=== PATIENT | female | born 1965 | race African-American/Black ===

== ENCOUNTER 2021-02-08 06:12 | Emergency (ER) | payer SELFPAY ==
[~2021-02-08] VITALS: Ht 170.2 cm; Wt 70.0 kg
[2021-02-08] MEDS ORDERED: IBUPROFEN 400MG TABLET PO ONE (07:00)
[2021-02-08] MEDS ORDERED: ACETAMINOPHEN 325MG TABLET PO ONE (07:00)
[2021-02-08 07:04] VITALS: BP 144/62
== END 2021-02-08 07:56 | disposition home or self-care (01) ==
LOC: ER 06:12
DX: Z00.00 Encounter for general adult medical examination without abnormal findings (principal); Z85.89 Personal history of malignant neoplasm of other organs and systems
CPT/HCPCS: 99283